=== PATIENT | male | born 1970 | race American Indian/Alaskan Native ===

== ENCOUNTER → 2019-02-16 | Emergency (ER) | payer OTHER ==
[~2019-02-16] VITALS: Ht 193 cm; Wt 77.1 kg
[~2019-02-16] MED LIST: BACTRIM DS TAB1 EACH PO; CLEOCIN HCL300 MG PO; LANTUS100 UNITS/ SUB-Q; LEVOXYL50 MCG PO; MAXZIDE 37.5 MG-1 EA PO; NOVOLOG100 UNIT/1 SUB-Q; TRAMADOL HCL50 MG PO; VITAMIN D31000 UNI1 PO
== END ==
LOC: ED 17:28
DX: L03.115 Cellulitis of right lower limb (principal); L03.116 Cellulitis of left lower limb; E11.9 Type 2 diabetes mellitus without complications; I50.9 Heart failure, unspecified; F17.200 Nicotine dependence, unspecified, uncomplicated; Z88.6 Allergy status to analgesic agent; Z79.4 Long term (current) use of insulin; Z79.899 Other long term (current) drug therapy
CPT/HCPCS: 36415; 80053; 83880; 85025; 93971; 99284-25